=== PATIENT | male | born 1995 ===

== ENCOUNTER 2024-04-30 17:43 | Emergency (ER) | payer BC ==
[2024-04-30] MEDS: Lidocaine 1% with EPINEPHrine 1:100,000 20 ML MDV INJECT ONE (18:10)
== END 2024-04-30 18:50 | disposition home or self-care (01) ==
LOC: LB.ED 17:43
DX: S61.012A Laceration without foreign body of left thumb without damage to nail, initial encounter (principal); Z88.1 Allergy status to other antibiotic agents; W26.8XXA Contact with other sharp object(s), not elsewhere classified, initial encounter
CPT/HCPCS: 12001; 99282